=== PATIENT | male | born 1980 | race Caucasian/White ===

== ENCOUNTER 2019-11-01 04:30 | Day surgery (SDC) | payer OTHER ==
[2019-10-30 14:17] VITALS: BMI 27.8
[2019-11-01] MEDS ORDERED: MIDAZOLAM HCL 2 MG/2 ML SINGLE DOSE VIAL ONE ×2 (08:55)
[2019-11-01] MEDS ORDERED: ROPIVACAINE HCL 0.5% 30ML VIAL ONE (08:56)
[2019-11-01] MEDS ORDERED: PROPOFOL 20 ML ONE (09:44)
[2019-11-01] MEDS ORDERED: KETAMINE HCL 200 MG/20 ML VIAL ONE (09:44)
[2019-11-01] MEDS ORDERED: DEXAMETHASONE SOD PHOSPHATE 4 MG/1 ML VIAL ONE (09:45)
[2019-11-01] MEDS ORDERED: SODIUM CHLORIDE 0.9% P/F 10 ML VIAL IJ ONE (09:45)
[2019-11-01] MEDS ORDERED: LIDOCAINE HCL/PF 2% SDV 5ML VIAL ONE (09:45)
[2019-11-01] MEDS ORDERED: ONDANSETRON 4 MG/2 ML VIAL ONE (09:45)
[2019-11-01] MEDS ORDERED: KETOROLAC TROMETHAMINE 30 MG/1 ML VIAL ONE (09:45)
--- NOTE | 2019-11-01 09:45 | HP ---
[facility] - Chief Complaint Chief Complaint: left knee pain, instability - Past Medical History Allergies/Adverse Reactions: Allergies Allergy/AdvReac Type Severity Reaction Status Date / Time No Known Allergies Allergy Verified 11/01/19 07:59 - Current Medications Current Medications: Home Medications Medication Instructions Recorded Diphenhydramine HCl [Benadryl 25 mg PO HS 10/30/19 Capsule -] Oxycodone HCl/Acetaminophen 1 - 2 tab PO Q6H #30 tab MDD 6 11/01/19 [Percocet 5-325 mg Tablet] Satellite Physical Exam - Physical Examination Vital Signs: Vital Signs Period Temp Pulse Resp BP Sys/Riggs Pulse Ox Last 24 Hr 97.8 F 57 16 130/84 99 General Appearance: Well Nourished, Well Developed, Alert & Oriented x3 ENT: Clear Lung: Normal air movement Extremities: Other (left knee, + ttp, decr rom, + yelena, + ant draw, + pivot, nvi, MRI + acl rupture) Neurological: Intact, Alert, Oriented Satellite Impression/Plan - Impression/Plan Impression: left knee acl rupture Operative Procedure: left knee arthroscopy with acl reconstruction using graftlink Date to be Performed: 11/01/19
[2019-11-01] MEDS ORDERED: ceFAZolin SODIUM 1 GM VIAL ONE (09:46)
[2019-11-01] MEDS ORDERED: ceFAZolin SODIUM 1 GM VIAL IVPB ONE (10:05)
[2019-11-01] MEDS ORDERED: EPHEDRINE SULFATE/0.9% NACL/PF 50 MG/10 ML SYRINGE NR ONE (10:26)
[2019-11-01] MEDS ORDERED: ONDANSETRON 4 MG/2 ML VIAL IVPUSH PRN (10:28)
[2019-11-01] MEDS ORDERED: oxyCODONE HCL 5 MG TABLET PO PRN ×2 (10:28)
[2019-11-01] MEDS ORDERED: LACTATED RINGERS SOLUTION 1,000 ML IV SCH (10:30)
--- NOTE | 2019-11-01 11:11 | OP ---
Operative Note - Note: Operative Date: 11/01/19 ([facility]) Pre-Operative Diagnosis: left knee internal derangement Operation: left knee arthroscopy with ACL reconstruction using graftlink allograft, PMM Post-Operative Diagnosis: Same as Pre-op Surgeon: Reinaldo Mays Basketball Commentator: Ramone Ward Anesthesiologist/PIEROGI MAKER: Cameron Matthew Anesthesia: General, Local Specimens Removed: shavings Estimated Blood Loss (mls): 10
[2019-11-01] MEDS ORDERED: oxyCODONE HCL 5 MG TABLET ONE (14:14)
[2019-11-01 15:52] VITALS: BP 129/83; PULSE 60; TEMP 97.7
--- NOTE | 2019-11-02 16:10 | PATH ---
Surgical Pathology Report Patient Name: ANTONINO TAM [facility] [place]. Rec. #: [id number] /Age/Gender: 1980 (Age: 39) / M Account: [id number] Location: [facility] SUR[facility]ICAL Taken: 11/01/2019 Received: 11/01/2019 Reported: 11/02/2019 Physicians: Reinaldo Mays M.D. Specimen(s) Received LEFT KNEE SHAVINGS Clinical History Tear left ACL Final Diagnosis KNEE SHAVINGS, LEFT, ACL REPAIR: FRAGMENTS OF CARTILAGE, BONE, DENSE FIBROCONNECTIVE TISSUE, AND FIBROADIPOSE TISSUE. Electronically Signed Amy Nunez M.D. Gross Description Received in formalin, labeled "left knee shavings," is a 6.0 x 4.5 x 0.6 cm. aggregate of ann-yellow soft tissue fragments. A member services representative portion is submitted in one cassette. /11/01/2019 saudi/11/01/2019
--- NOTE | 2019-11-02 17:39 | OP ---
DATE OF OPERATION: 11/01/2019 PREOPERATIVE DIAGNOSIS: Left anterior cruciate ligament tear and degenerative joint disease medially in the knee. POSTOPERATIVE DIAGNOSIS: Left anterior cruciate ligament tear and degenerative joint disease medially in the knee; complex tear, medial meniscus. PROCEDURE: Arthroscopy of left knee with anterior cruciate ligament reconstruction with allograft, partial medial meniscectomy. SURGICAL ATTENDING: Reinaldo Mays MD CONSTRUCTION EQUIPMENT OVERHAULER: PARVIN Manning ANESTHESIA: Regional and general. CLOSURE: A GraftLink with appropriate Arthrex buttons on both sides, 3-0 nylon for skin. ESTIMATED BLOOD LOSS: Negligible. COMPLICATIONS: None. CONDITION: To recovery room in stable condition. DESCRIPTION OF OPERATIVE PROCEDURE: Patient was taken to the operating room on November 01, 2019. Regional and general anesthesia was administered by the anesthesiologist. IV Kefzol was administered prophylactically prior to the case. A well-padded pneumatic tourniquet was placed on the left proximal thigh. Preoperative exam revealed 3+ anterior drawer and [place] exam, some varus attitude to the knee. Left lower extremity was prepped and draped in the usual sterile fashion. On the back table, the GraftLink graft was prepared with appropriate markings throughout the knee in order to be utilized in the knee with loading the sutures and the buttons on the graft. At this time, I did a superomedial and mediolateral infrapatellar portal incisions. The scope portal was inferolaterally, and the working portal was inferomedially. Pouch was visualized to be clean. The medial and lateral gutters were visualized to be clean. The undersurface of the patella and trochlea were visualized to be intact. With valgus stress on the knee, the medial compartment was entered. Medial meniscus was found to have a complex of its posterior horn. This was debrided back to smooth, stable meniscal tissue using meniscal biter and arthroscopic shaver. Then medial tibial plateau had extensive posterior medial grade 4 changes, and its cartilage was debrided using the shaver. The medial femoral condyle was run and found to have extensive grade 3 and 4 changes. Again, any loose cartilage was debrided using the shaver. (We had discussed with the patient before that the need for a partial knee replacement in the future but first the need was to stabilize his knee with an ACL as his leg was markedly unstable.) In the figure-4 position, lateral compartment was entered. Lateral meniscus was visualized and probed and found to be intact. Lateral femoral condyle was run and found to be intact as was lateral tibial plateau. At 90 degrees, the ACL was visualized to be completely torn. This was debrided using the shaver. A notchplasty was performed gaining sufficient width and height of the notch to see all the way to the back of the knee to perform the procedure. There was also some anterior osteophyte formation in and around the notch that was debrided of the bur as well. All particulate debris was removed with the shaver. The scope was switched to the inferomedial portal. The cgvi-acu-tut guide was placed into the posterior aspect of the notch low on the wall. The FlipCutter was then drilled into the circular guide portion of the knee in the appropriate aspect of the posterior aspect of the notch. The FlipCutter was then moved to 9.5 and was used to retrograde cut a tunnel in the femur. All bone fragments were removed using a shaver. An excellent posterior wall was clearly seen. A FiberStick suture was delivered down. The FlipCutter was pulled out the inferolateral portal. The scope was shifted back to the inferolateral portal as well. The tibial guide was used to drill the FlipCutter just anterior to the PCL and then was retrograde reamed to cut a tunnel in the proximal tibia, 9.5 mm diameter to the appropriate depth. All bone fragments were again removed using a shaver. A FiberStick was placed up from the anteromedial tibia into the knee and was delivered out of the inferomedial portal. Both shuttle sutures were pulled into the knee and at one time delivered out the inferomedial portal to ensure no soft tissue bridging. The GraftLink was then attached first to the femoral shuttle suture and pulled up into the femur. The button on the graft was engaged in lateral distal femoral cortex and then the toggle sutures were used to toggle the graft up to the appropriate depth. The tibial shuttle suture was then used to pull the tibial sutures into the tibial tunnel. The tibial button was then assembled on the toggle sutures and the graft was then toggled and tensioned into place. This was done at 30 degrees. Both femoral and tibial toggle sutures were then used again to toggle them and tension the graft appropriately. The knee was then through a range of motion and found to go from full extension, full flexion with excellent crossing of the ACL over the PCL and no impingement on the notch throughout. The knee was flushed out of any bone particulate with copious amounts of irrigation and then the trocars were removed. All portals were closed using a 3-0 nylon suture, a sterile pressure dressing followed by a knee immobilizer was applied. Tourniquet was not inflated during the operation. Estimated blood loss negligible. Patient awakened from anesthesia and transferred to recovery in stable condition. No complications. Rita [id number]
== END 2019-11-01 16:00 | disposition home or self-care (01) ==
LOC: JASU-SURG 04:30
PROVIDERS: ATTEND Orthopaedic Surgery
PROC: 0MQP4ZZ Repair Left Knee Bursa and Ligament, Percutaneous Endoscopic Approach (ICD-10-PCS; 2019-11-01)
PROC: 0SUD4KZ Supplement Left Knee Joint with Nonautologous Tissue Substitute, Percutaneous Endoscopic Approach (ICD-10-PCS; 2019-11-01)
PROC: 0SBD4ZZ Excision of Left Knee Joint, Percutaneous Endoscopic Approach (ICD-10-PCS; principal; 2019-11-01 09:30)
DX: S83.512A Sprain of anterior cruciate ligament of left knee, initial encounter (principal); S83.232A Complex tear of medial meniscus, current injury, left knee, initial encounter; X58.XXXA Exposure to other specified factors, initial encounter; Y93.9 Activity, unspecified; Y92.9 Unspecified place or not applicable; Y99.9 Unspecified external cause status; M17.12 Unilateral primary osteoarthritis, left knee
CPT/HCPCS: 29881; 29888; C1713; 88304-TC; 94760